=== PATIENT | male | born 1995 | race Caucasian/White ===

== ENCOUNTER 2019-05-06 21:55 | Emergency (ER) | payer OTHER ==
[2019-05-06] MEDS ORDERED: IPRATROPIUM/ALBUTEROL 0.5-2.5 MG/3 ML AMPUL NEB ONE (22:31)
[2019-05-06] MEDS ORDERED: PREDNISONE 20 MG TABLET PO ONE (22:31)
--- NOTE | 2019-05-06 22:32 | ER Document Report ---
ED Medical Screen (RME) - General Stated Complaint: BREATHING DIFFICULTIES Time Seen by Provider: 05/06/19 22:28 Notes: HPI: 24-year-old male who smokes presenting to the emergency department complaining of cough and wheezing over the last 3 to 4 days. No fever. Patient states his son was sick prior to onset of his symptoms. Patient does report an asthma history but is out of his albuterol inhaler. No chest pain but complains of tightness especially with breathing, states symptoms do feel like his asthma when it acts up I have greeted and performed a rapid initial assessment of this patient. A comprehensive ED assessment and evaluation of the patient, analysis of test results and completion of the medical decision making process will be conducted by additional ED providers PHYSICAL EXAMINATION: GENERAL: Well-appearing, well-nourished and in no acute distress. Does not become significantly dyspneic with speaking HEAD: Atraumatic, normocephalic. EYES: sclera anicteric, conjunctiva are normal. ENT: Moist mucous membranes. NECK: Normal range of motion LUNGS: Normal work of breathing, bilateral inspiratory and expiratory wheezing all lung wang. No rhonchi. No rales. Pulse oximetry 98% on room air not hypoxic HEART: 2+ radial pulses bilaterally, regular rate and rhythm ABD: limited by positioning for exam in triage. EXTREMITIES: no pitting or edema. No cyanosis. NEUROLOGICAL: No focal neurological deficits. Moves all extremities spo ntaneously and on command. PSYCH: Normal mood, normal affect. SKIN: Warm, Dry, normal turgor, no rashes or lesions noted. - Related Data Allergies/Adverse Reactions: cashew nut Allergy (Verified 05/06/19 22:29) Physical Exam - Vital signs Vitals: Temp Pulse Resp BP Pulse Ox 98.1 F 95 20 134/83 H 98 05/06/19 22:00 05/06/19 22:00 05/06/19 22:00 05/06/19 22:00 05/06/19 22:00 Course - Vital Signs Vital signs: Temp Pulse Resp BP Pulse Ox 98.1 F 95 20 134/83 H 98 05/06/19 22:00 05/06/19 22:00 05/06/19 22:00 05/06/19 22:00 05/06/19 22:00
--- NOTE | 2019-05-07 00:53 | ER Document Report ---
ED General - General Chief Complaint: Shortness Of Breath Stated Complaint: BREATHING DIFFICULTIES Time Seen by Provider: 05/06/19 22:28 Mode of Arrival: Ambulatory Information source: Patient - HPI Notes: Patient comes in complaints of cough cold congestion and trouble breathing. He states once he arrived here he received a breathing treatment in triage and now he feels significantly better. Patient states for 5 days he has had cough and congestion. He states he does have a history of asthma. He states he no longer has an inhaler or any type of steroids at home. Patient symptoms were moderate. They are worse with exertion and better with rest. They consisted mainly of shortness of breath. They were constant until receiving the treatment. - Related Data Allergies/Adverse Reactions: cashew nut Allergy (Verified 05/06/19 22:29) Home Medications: RECUE INHALER. Past Medical History - General Information source: Patient - Social History Smoking Status: Current Every Day Smoker Frequency of alcohol use: None Drug Abuse: None Family History: Reviewed & Not Pertinent Patient has suicidal ideation: No Patient has homicidal ideation: No Review of Systems - Review of Systems Constitutional: Malaise, Weakness. denies: Chills, Fever Cardiovascular: denies: Chest pain, Palpitations Respiratory: Cough, Short of breath -: Yes All other systems reviewed and negative Physical Exam - Vital signs Vitals: Temp Pulse Resp BP Pulse Ox 98.1 F 95 20 134/83 H 98 05/06/19 22:00 05/06/19 22:00 05/06/19 22:00 05/06/19 22:00 05/06/19 22:00 Interpretation: Normal - General General appearance: Appears well, Alert - HEENT Head: Normocephalic, Atraumatic Eyes: Normal Pupils: PERRL - Respiratory Respiratory status: No respiratory distress Chest status: Nontender Breath sounds: Normal Chest palpation: Normal - Cardiovascular Rhythm: Regular Heart sounds: Normal auscultation Murmur: No - Abdominal Inspection: Normal Distension: No distension Bowel sounds: Normal Tenderness: Nontender Organomegaly: No organomegaly - Back Back: Normal, Nontender - Extremities General upper extremity: Normal inspection, Nontender, Normal color, Normal ROM, Normal temperature General lower extremity: Normal inspection, Nontender, Normal color, Normal ROM, Normal temperature, Normal weight bearing. No: Jethro's sign - Neurological Neuro grossly intact: Yes Cognition: Normal Orientation: AAOx4 [place] Coma Scale Eye Opening: Spontaneous [place] Coma Scale Verbal: Oriented [place] Coma Scale Motor: Obeys Commands [place] Coma Scale Total: 15 Speech: Normal Motor strength normal: LUE, RUE, LLE, RLE Sensory: Normal - Psychological Associated symptoms: Normal affect, Normal mood - Skin Skin Temperature: Warm Skin Moisture: Dry Skin Color: Normal Course - Vital Signs Vital signs: Temp Pulse Resp BP Pulse Ox 98.1 F 95 20 134/83 H 98 05/06/19 22:00 05/06/19 22:00 05/06/19 22:00 05/06/19 22:00 05/06/19 22:00 Discharge - Discharge Clinical Impression: URI (upper respiratory infection) Qualifiers: URI type: unspecified URI Qualified Code(s): J06.9 - Acute upper respiratory infection, unspecified Condition: Stable Disposition: HOME, SELF-CARE Instructions: Upper Respiratory Illness ([facility]) Prescriptions: Amoxicillin 1 tab PO TID #30 tab Prednisone [Deltasone 20 mg Tablet] 3 tab PO DAILY 5 Days tablet Albuterol Sulfate [Proair HFA Inhalation Aerosol 8.5 gm MDI] 2 puff IH Q4H PRN #1 mdi PRN Reason: Forms: Return to Work
[2019-05-07 01:26] VITALS: BP 113/64
== END 2019-05-07 01:10 | disposition home or self-care (01) ==
LOC: ER 21:55
DX: J06.9 Acute upper respiratory infection, unspecified (principal); J45.909 Unspecified asthma, uncomplicated; R05 Cough; R06.02 Shortness of breath; R53.81 Other malaise; R53.1 Weakness; F17.200 Nicotine dependence, unspecified, uncomplicated; Z91.018 Allergy to other foods
CPT/HCPCS: 94640; 99284; J7512; J7620